=== PATIENT | male | born 1990 | race Caucasian/White ===

== ENCOUNTER 2018-06-18 05:58 | Emergency (ER) | payer SELFPAY ==
[2018-06-18 05:59] VITALS: BP 122/99; PULSE 64; RESP 18; TEMP 36.2; O2SAT 96; BMI 20.6
--- NOTE | 2018-06-18 07:08 | RAD_ITS ---
STUDY: X-RAY - LUMBAR SPINE REASON FOR EXAM: Male, 27 years old. Low back pain TECHNIQUE: 3 view(s) of the lumbar spine were obtained. COMPARISON: None FINDINGS: Normal lumbar lordosis. There is no substantial scoliosis. There is a normal alignment of the vertebrae. Normal vertebral bodies and endplates. Normal disc space heights. The soft tissue structures are unremarkable. RAD/Lumbar Spine 2 or 3 Views IMPRESSION: Normal x-ray examination of the lumbar spine. Electronically Signed: González Akbar DO at 7:52 EDT Tel , Service support ,
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
[2018-06-18] MEDS: Naproxen 500 MG Tablet PO (07:43)
[2018-06-18 07:46] VITALS: BP 121/77; PULSE 62; RESP 15; O2SAT 98
== END 2018-06-18 07:51 | disposition home or self-care (01) ==
PROVIDERS: Emergency Provider Emergency Medicine
DX: S39.012A Strain of muscle, fascia and tendon of lower back, initial encounter (principal); V49.49XA Driver injured in collision with other motor vehicles in traffic accident, initial encounter; Y93.89 Activity, other specified; Y92.410 Unspecified street and highway as the place of occurrence of the external cause
CPT/HCPCS: 72100; 99282

== ENCOUNTER 2018-07-07 08:48 | Emergency (ER) | payer SELFPAY ==
[2018-07-07 08:49] VITALS: BP 125/74; PULSE 83; RESP 18; TEMP 36.6; O2SAT 97; BMI 21.7
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
[2018-07-07 09:37] VITALS: RESP 14
== END 2018-07-07 09:40 | disposition home or self-care (01) ==
PROVIDERS: Emergency Provider Emergency Medicine
DX: S39.012A Strain of muscle, fascia and tendon of lower back, initial encounter (principal); V89.2XXA Person injured in unspecified motor-vehicle accident, traffic, initial encounter; Y93.89 Activity, other specified; Y92.9 Unspecified place or not applicable
CPT/HCPCS: 99282

== ENCOUNTER 2019-03-25 06:33 | Emergency (ER) | payer SELFPAY ==
[2019-03-25 06:36] VITALS: BP 140/67; PULSE 65; RESP 18; TEMP 36.6; O2SAT 98; BMI 18.8
[2019-03-25 07:09] LABS: Red Blood Cells-Urine 0 SEEN /hpf (0-5); Squamous Epithelial Cells - UA 0 SEEN /hpf (0-5); White Blood Cells 0 SEEN /hpf (0-5)
[2019-03-25] MEDS: 0.9% Normal Saline 1,000 ML 125 ML IV (07:09)
[2019-03-25] MEDS: Ondansetron 4 MG/2 ML Vial IV (07:09)
[2019-03-25 07:19] LABS: Color, Urine Yellow (Yellow); Glucose, Dipstick Normal (Normal); Ketone-Dipstick Negative (Negative); Leukocyte Esterase-Dipstick Negative /ul (Negative); Nitrite-Dipstick Negative (Negative); Occult Blood-Urine Negative /ul (Negative); Protein-Dipstick Negative (Negative); Urine Bilirubin Dipstick Negative (Negative); Urine Clarity Clear (Clear); Urine Urobilinogen Normal (Normal)
[2019-03-25 07:19] LABS: Absolute Lymphocyte Count 3.12 X10^3/ul (0.83-4.51); Basophil# 0.03 X10^3/uL; Basophil% 0.4 % (0-1); Eosinophil# 0.24 X10^3/uL; Eosinophils% 3.4 % (0-5); Hematocrit 46.4 % (40-54); Hemoglobin 15.3 g/dl (13.0-16.5); Lymphocyte # 3.12 X10^3/ul (4.0); Lymphocyte % 43.9 % (19-41); Mean Corpuscular Hgb 28.5 pg (27.0-32.0); Mean Corpuscular Volume 86.6 fL (80-94); Monocyte# 0.73 X10^3/uL; Monocyte% 10.3 % (0-10); Neutrophil # 2.97 X10^3/uL (2.7-7.7); Neutrophil % 41.9 % (47-70); Platelet Count 216 K/mm3 (150-450); RBC Distribution Width CV 12.6 % (11.6-14.6); RBC Distribution Width SD 39.5 fl (35.1-43.9); Red Blood Count 5.36 M/mm3 (4.6-6.2); White Blood Count 7.1 K/mm3 (4.4-11.0)
[2019-03-25 07:22] LABS: POSITIVE COUNT NO; POSITIVE DIFFERENTIAL NO; POSITIVE MORPHOLOGY NO
--- NOTE | 2019-03-25 07:27 | ED.DCSUM_ITS ---
- ER Visit Summary Date of Service: 03/25/19 Chief Complaint: [Abdominal pain] History of Present Illness: The patient is a 28 M [presents with abdominal pain that started 2 days ago. Patient states pain is been continuous. He currently rates it a 7 out of 10. Complains of nausea and vomiting x2 with it. He denies any diarrhea. Last bowel movement was yesterday. Patient states that the stools been looking somewhat black. Patient denies using frequent anti- inflammatories. Patient has had prior appendectomy. No family history of inflammatory bowel disease.] Physical Examination: [HEENT-PERRLA, EOMI. Cranial nerves II through XII grossly intact. TMs clear. Mucous membranes moist. No adenopathy. Cardiovascular-regular rate and rhythm without murmur or ectopy Lungs-clear to auscultation, chest wall stable without crepitus or subcu emphysema Abdomen-normoactive bowel sounds, soft. Patient has diffuse tenderness over the epigastric region with some guarding. There is no rebound, rigidity, or perineal signs. Extremities-intact ?4, normal range of motion, normal pulses, atraumatic] Test Results: [CBC, LFTs, lipase, lactate, urinalysis ordered and pending] Emergency Department Course and Treatment: [Patient was given Zofran and was ordered normal saline. He refused pain medication. Care of patient turned over the morning physician awaiting lab results and final disposition] Treatment Plan: [The care of patient turned over the morning physician awaiting lab results pending] Disposition: [Pending] Impression: [Abdominal pain] This note was generated with [employer] dictation software. It may contain incorrect words, spelling, and punctuation that were not noted in review of the chart prior to signing ED Disposition - Plan for ED Patient: Referrals: Care Physician,No Primary [Primary Care Provider] -
[2019-03-25 07:28] LABS: Bacteria RARE /hpf (None Seen); Mucous, Urine 1+ /hpf (<or=2+)
[2019-03-25 07:29] LABS: ALB/GLOB Ratio 1.3 RATIO (0.9-2.4); AST(SGOT) 12 U/L (15-37); Alanine Aminotransfer ALT/SGPT 17 U/L (16-61); Alkaline Phosphatase 57 U/L (45-117); Anion Gap 7 (5-15); BUN 13 mg/dL (7-18); Calcium,Total 8.8 mg/dL (8.5-10.1); Chloride 107 mmol/L (98-107); Creatinine, Serum 1.08 mg/dL (0.70-1.30); EST Glomerular Filtration Rate 88 mL/min (>60); Est Glom Filt Rate - Afr Amer 106 mL/min (>60); Estimated Creatinine Clearance 95.29 ml/min; Globulin 3.1 g/dL (2.2-4.2); Glucose 109 mg/dL (74-106); Lipase 96 U/L (73-393); Potassium 4.1 mmol/L (3.5-5.1); Protein, Total 7.1 g/dL (6.4-8.2); Sodium Level 142 mmol/L (136-145)
[2019-03-25 07:45] LABS: Lactic Acid 0.8 mmol/L (0.4-2.0)
[2019-03-25] MEDS: Mag Hydrox/Al Hydrox/Simeth 30 ML UDC PO (08:34)
--- NOTE | 2019-03-25 08:50 | ED.VISSUMM ---
- ER Visit Summary Date of Service: 03/25/19 Chief Complaint: [] History of Present Illness: The patient is a 28 M [] Physical Examination: [] Test Results: [] Emergency Department Course and Treatment: [] Treatment Plan: [] Disposition: [] Impression: [] This note was generated with E[employer] dictation software. It may contain incorrect words, spelling, and punctuation that were not noted in review of the chart prior to signing ED Disposition - Plan for ED Patient: Disposition: Home or Assisted Living Diagnosis: Epigastric abdominal pain Instructions: ED PUD Vs Gastritis Referrals: Care Physician,No Primary [Primary Care Provider] - Blanche Mojica [NON-STAFF] - 5-7 Days Additional Instructions: Purchase Pepcid [id number] and take 1 tablet twice a day for the next 2 weeks.
[2019-03-25 09:12] VITALS: PULSE 70; RESP 17; O2SAT 98
== END 2019-03-25 09:14 | disposition home or self-care (01) ==
PROVIDERS: Emergency Provider Emergency Medicine
DX: R10.13 Epigastric pain (principal)
CPT/HCPCS: 80053; 81001; 82274; 83605; 83690; 85025; 96365; 96375; 99284; J7030; A4216; J2405; J3490

== ENCOUNTER 2021-05-18 09:52 | Emergency (ER) | payer MEDICAID, SELFPAY ==
[2021-05-18 09:53] VITALS: BP 125/83; PULSE 84; RESP 16; TEMP 36.1; O2SAT 98
--- NOTE | 2021-05-18 10:01 | EX.ED.UPPERE ---
HPI History of Present Illness Chief Complaint: Laceration Informant: patient Occured/Mechanism Mechanism/Context: Yes injury Onset/Context/Timing Onset: Today Context: Sudden Onset Timing: Continuous Associated Symptoms Associated Symptoms: Negative for Parasthesia, Weakness and Loss of Funtion Narrative Narrative: Patient is a 30-year-old male is otherwise healthy who presents to the emergency department laceration to his left arm. His tetanus was less than a year ago. He states he was in his garage and reaching. He thinks he may have cut it on a sawblade or the corner of a metal shelf. He had some pain and bleeding. He denies any weakness or numbness in his hand. He is on no anticoagulants. [facility] Medications NK 03/25/19 [History Last Taken Unknown] Allergy/AdvReac Type Severity Reaction Status Date / Time No Known Allergies Allergy Verified 05/18/21 09:52 Social History Smoking Status: Never smoker ROS ROS ED Constitutional Constitutional ED: Denies chills or fever(s) Eyes Eyes: Denies blurry vision or change in vision ENT ENT ED: Denies ear pain or sore throat Cardiovascular Cardiovascular: Denies chest pain or palpitations Respiratory/Chest Respiratory/Chest: Denies cough, dyspnea or dyspnea on exertion Gastrointestinal Gastrointestinal: Denies abdominal pain, nausea or vomiting Genitourinary Genitourinary ED: Denies dysuria or urinary frequency Musculoskeletal Musculoskeletal: Denies arthralgias or myalgias Integumentary Denies rash Neurologic Neurologic: Denies headache(s) or paresthesias Psychiatric Psychiatric: Denies anxiety or depression Endocrine Endocrinology: Denies polydipsia or polyuria Allergic/Immunologic Allergic/Immunologic ED: Denies urticaria EXAM Physical Exam Const Vital Signs: 05/18/21 09:53 Temperature 97.0 F L Temperature Source Temporal Pulse Rate 84 Respiratory Rate 16 Blood Pressure 125/83 H Blood Pressure Mean 97 Pulse Ox 98 Oxygen Delivery Method Room Air Positive well nourished and well developed General Appearance ED: well developed HEENT Reports normocephalic, head/scalp atraumatic and moist mucous membranes Eyes PERRL and EOMs intact bilaterally Neck no lymphadenopathy and supple General: Negative for tenderness Chest Wall inspection of chest normal Resp normal respiratory effort and clear to auscultation bilaterally Cardio regular rate, regular rhythm and no murmurs GI normal to inspection, nondistended, normoactive bowel sounds Palpation: Negative for tender, guarding or rebound tenderness present Back/Spine no CVA tenderness Cervical Spine: Negative for cervical spine tenderness Thoracic Spine / Upper Back: Negative for thoracic spinal tenderness Extremity normal to inspection Extremity Narrative: Patient has a 4 cm full-thickness laceration the lateral border of the right forearm. It does not involve the fascia. It is not grossly contaminated. General Extremety ED: Yes other findings; Negative for tenderness General Extremity: other findings Neuro oriented x3 and CN's II-XII intact bilaterally Neuro Narrative: No focal deficits appreciated. Sensorium / Orientation: alert Psych mental status grossly normal Skin no rashes or lesions noted, no wounds and skin turgor normal MDM MDM MDM Narrative Medical decision making narrative: Patient's wound was copiously irrigated. It was anesthetized with 4 cc of 1% lidocaine with epinephrine. The wound was explored. There is no evidence of foreign body. The wound was closed using 8 simple interrupted 4-0 suture. Patient was counseled on local wound care. He tolerated the procedure without issue. He will follow-up in 10 days for suture removal return here with any increasing redness, pain, or drainage. Impression 1. 4 cm left forearm laceration with repair Discharge Plan Triage Chief Complaint: Laceration ED Provider: Dwight Phan Dx/Rx/DC Orders Instructions: ED Laceration: All Closures Prescriptions: No Action NK RF: 0 Primary Care Provider: Care Physician,No Primary Referrals: Suri Keys MD [STAFF PHYSICIAN] - 10 Day for suture removal Care Physician,No Primary [Primary Care Provider] -
[2021-05-18] MEDS: Lidocaine 1% /Epi 1:100 (20ml) 20 ML Vial INFILT (10:19)
== END 2021-05-18 10:40 | disposition home or self-care (01) ==
LOC: ED 10:35
PROVIDERS: Emergency Provider Emergency Medicine
DX: S51.812A Laceration without foreign body of left forearm, initial encounter (principal); X58.XXXA Exposure to other specified factors, initial encounter
CPT/HCPCS: 12002; 99283

== ENCOUNTER 2021-06-01 07:08 | Emergency (ER) | payer MEDICAID, SELFPAY ==
[2021-06-01 07:09] VITALS: BP 137/81; PULSE 62; RESP 18; TEMP 36.1; O2SAT 99; BMI 21.7
[2021-06-01 07:15] VITALS: BP 137/81; PULSE 62; RESP 18; TEMP 36.1; O2SAT 98
[2021-06-01] MEDS: Acetaminophen 325 MG Tablet 650 MG PO (07:28)
[2021-06-01 07:45] LABS: Absolute Lymphocyte Count 2.99 X10^3/uL (0.83-4.51); Absolute Neutrophil Count 2.8 X10^3/uL (2.0-7.7); Basophil# 0.04 X10^3/uL; Basophil% 0.6 % (0-1); Eosinophil# 0.36 X10^3/uL; Eosinophils% 5.3 % (0-5); Hematocrit 46.2 % (40-54); Hemoglobin 14.9 g/dL (13.0-16.5); Lymphocyte # 2.99 X10^3/ul (0.83-4.51); Lymphocyte % 43.8 % (19-41); Mean Corp Hgb Conc 32.3 g/dL (32-36); Mean Corpuscular Hgb 28.9 pg (27.0-32.0); Mean Corpuscular Volume 89.5 fL (80-94); Mean Platelet Vol. 10.5 fl (6.2-12.0); Monocyte# 0.66 X10^3/uL; Monocyte% 9.7 % (0-10); NRBC Flagged by Analyzer 0 % (0-5); Neutrophil # 2.75 X10^3/uL (2.7-7.7); Neutrophil % 40.3 % (47-70); Platelet Count 223 K/mm3 (150-450); RBC Distribution Width CV 11.9 % (11.6-14.6); RBC Distribution Width SD 39.4 fl (35.1-43.9); Red Blood Count 5.16 M/mm3 (4.6-6.2); White Blood Count 6.8 K/mm3 (4.4-11.0)
--- NOTE | 2021-06-01 07:45 | RAD_ITS ---
STUDY: X-RAY CHEST REASON FOR EXAM: Male, 30 years old. LL rib pain TECHNIQUE: PA and lateral views of the chest. COMPARISON: None. FINDINGS: Cardiac silhouette unremarkable. Pulmonary vascularity unremarkable. Aorta unremarkable. No focal patchy airspace opacities. No pleural effusions. Upper abdomen unremarkable. Osseous structures intact. No pneumothorax. RAD/Chest PA and Lateral IMPRESSION: No acute cardiopulmonary findings Electronically Signed: Kahlil Castillo DO at 8:07 EDT Tel , Service support ,
--- NOTE | 2021-06-01 07:46 | EDS_ITS ---
HPI History of Present Illness Chief Complaint: Chest Other Informant: patient Narrative Narrative: Patient is a 30-year-old male with a history of ulcers who presents to the emergency department for blood in his sputum, cough and left lower rib pain. He states he was on his way to work today whenever he developed a spontaneous cough. There was a small amount of blood streaked in his sputum. He is never had this happen before. He is not sure if the blood was coming from the cough or was from the back of his throat. He denies this ever happening before in the past. During the cough he developed left-sided low rib pain. He currently rates the pain as an 8 out of 10. Any movement makes it worse. He is never had this happen before. He denies cough prior to today. He states that the cough only lasted for a few minutes and has since resolved. He is only complaining of the pain now. He denies any fevers or chills. He does not feel short of breath. No nausea vomiting. He denies any melanotic stools. No diarrhea or bright red blood in the stool. He denies any abdominal pain. Patient denies any history of DVT/PE. No leg swelling or calf pain. No prolonged periods of immobility. Patient denies smoking, drinking or drug use. [facility] Home Medications NK 03/25/19 [History Last Taken Unknown] Allergy/AdvReac Type Severity Reaction Status Date / Time No Known Allergies Allergy Verified 06/01/21 07:11 Social History Smoking Status: Never smoker [facility] ED Constitutional Constitutional ED: Denies chills or fever(s) Eyes Eyes: Denies change in vision ENT ENT ED: Denies epistaxis or rhinorrhea Cardiovascular Cardiovascular: Denies palpitations Respiratory/Chest Respiratory/Chest: Reports cough; Denies dyspnea or dyspnea on exertion Gastrointestinal Gastrointestinal: Denies abdominal pain, diarrhea, nausea or vomiting Genitourinary Genitourinary ED: Denies dysuria, hematuria or urinary frequency Musculoskeletal Musculoskeletal: Denies back pain or neck pain Integumentary Denies rash Neurologic Neurologic: Denies dizziness, headache(s) or weakness EXAM Physical Exam Const Vital Signs: 06/01/21 07:09 06/01/21 07:15 06/01/21 08:19 Temperature 97 F L 97 F L Temperature Source Temporal Temporal Pulse Rate 62 62 80 Respiratory Rate 18 18 17 Respiratory Effort Normal Non-Labored Respiratory Pattern Normal Blood Pressure 137/81 H 137/81 H 113/64 Blood Pressure Mean 99 99 Pulse Ox 99 98 98 Oxygen Delivery Method Room Air Room Air Positive well nourished and well developed General Appearance ED: well developed and NAD HEENT Reports normocephalic, head/scalp atraumatic and moist mucous membranes Eyes PERRL and EOMs intact bilaterally Neck supple Chest Wall inspection of chest normal Chest Narrative: The left lateral lower ribs are tender to palpation. Resp normal respiratory effort and clear to auscultation bilaterally Auscultation: Negative for rales, rhonchi or wheezes Cardio regular rate, regular rhythm and no murmurs GI normal to inspection, nondistended, normoactive bowel sounds and non-tender Palpation: soft; Negative for guarding or rebound tenderness present Back/Spine no CVA tenderness Extremity normal to inspection General Extremety ED: Negative for edema or tenderness General Extremity: Negative for edema Neuro no sensory deficits noted Sensorium / Orientation: alert Motor Exam: strength 5/5 throughout Psych mental status grossly normal Skin no rashes or lesions noted MDM MDM MDM Narrative Medical decision making narrative: Patient presents to the emergency department for a brief episode of coughing. There was a small amount of blood in his saliva which concerned him. After the coughing he noticed left lower rib pain. This is worse with any movement. It is reproducible on physical exam. He satting 98% on room air. He is not tachycardic. He is in no acute distress. Will check basic lab work, chest x-ray. Patient is PERC negative but D-dimer was obtained which was well within normal limits. The rest of his lab work did not reveal any significant acute abnormality. He is not anemic. Does have a high white blood cell count. His electrolytes and liver enzymes are within normal limits. Troponin is normal. He has not had any repeat episodes throughout ED stay. On reexamination he is resting comfortably. Patient likely suffered a muscle/rib strain with coughing. He could have ruptured a capillary. I have low concern for PE, aortic catastrophe, DC. Patient does have a history of ulcers but he has no reproducible abdominal pain. This is all over the ribs. I do not feel this is a bleeding ulcer. If he has worsening symptoms whatsoever such as coughing up more blood, having melanotic stools or vomiting blood he needs to return back to the emergency department. He notes any significant shortness of breath he also needs return. He does not have a PCP so I gave him a referral for one. Patient understands and is agreeable this plan. Discharged home in stable condition. All questions were answered. Lab Data Labs: Laboratory Results - last 24 hr 06/01/21 06/01/21 06/01/21 07:20 07:20 07:35 WBC 6.8 RBC 5.16 Hgb 14.9 Hct 46.2 MCV 89.5 MCH 28.9 MCHC 32.3 RDW Std Deviation 39.4 RDW Coeff of Amaya 11.9 Plt Count 223 MPV 10.5 Immature Gran % (Auto) 0.300 Neut % (Auto) 40.3 L Lymph % (Auto) 43.8 H Appling % (Auto) 9.7 Eos % (Auto) 5.3 H Baso % (Auto) 0.6 Absolute Neuts (auto) 2.8 Absolute Lymphs (auto) 2.99 Nucleated RBC % 0 D-Dimer Quant (PE/DVT) <= 0.27 Sodium 141 Potassium 3.9 Chloride 106 Carbon Dioxide 29.0 Anion Gap 6 BUN 19 H Creatinine 0.91 Estim Creat Clear Calc 127.94 Est GFR (MDRD) Af Amer 128 Est GFR (MDRD) Non-Af 106 BUN/Creatinine Ratio 21.0 H Glucose 101 Calcium 8.6 Total Bilirubin 0.20 AST 11 L ALT 18 Alkaline Phosphatase 60 Troponin I High Sens 3.1 Total Protein 7.1 Albumin 4.1 Globulin 3.0 Albumin/Globulin Ratio 1.4 Radiography Chest X-Ray - ED: 2 View (Patient has clear lung powell bilaterally. No pleural effusions. Normal cardiac silhouette. Normal mediastinum. No osseous abnormality appreciated.) Diagnostic Testing: Radiology Impression Chest X-Ray 06/01/21 07:45 IMPRESSION: No acute cardiopulmonary findings Electronically Signed: Kahlil Castillo DO at 8:07 EDT Tel , Service support , Discharge Plan Triage Chief Complaint: Chest Other ED Provider: Humble Rojas Dx/Rx/DC Orders Clinical Impression: Acute chest wall pain, Blood in sputum Instructions: ED Chest Wall Pain, Costochondritis, ED Hemoptysis Prescriptions: No Action NK RF: 0 Primary Care Provider: Care Physician,No Primary Referrals: Royal Austin MD [STAFF PHYSICIAN] - 3-5 Days Care Physician,No Primary [Primary Care Provider] - Disposition Disposition: Home, Self Care Discharge Date/Time: 06/01/21 08:20
[2021-06-01 08:01] LABS: ALB/GLOB Ratio 1.4 RATIO (0.9-2.4); AST(SGOT) 11 U/L (15-37); Alanine Aminotransfer ALT/SGPT 18 U/L (16-61); Albumin, Serum 4.1 g/dL (3.2-5.0); Alkaline Phosphatase 60 U/L (45-117); Anion Gap 6 (5-15); BUN 19 mg/dL (7-18); Calcium,Total 8.6 mg/dL (8.5-10.1); Chloride 106 mmol/L (98-107); Creatinine, Serum 0.91 mg/dL (0.70-1.30); EST Glomerular Filtration Rate 106 mL/min (>60); Est Glom Filt Rate - Afr Amer 128 mL/min (>60); Estimated Creatinine Clearance 127.94 ml/min; Glucose 101 mg/dL (74-106); Potassium 3.9 mmol/L (3.5-5.1); Protein, Total 7.1 g/dL (6.4-8.2); Sodium Level 141 mmol/L (136-145); Troponin-I HS 3.1 pg/mL (3.0-78.5)
[2021-06-01 08:03] LABS: D-Dimer Quantitative (DVT/PE) <= 0.27 FEU/ug/m (0.27-0.49)
[2021-06-01 08:19] VITALS: BP 113/64; PULSE 80; RESP 17; O2SAT 98
== END 2021-06-01 08:20 | disposition home or self-care (01) ==
PROVIDERS: Emergency Provider Emergency Medicine
DX: R07.89 Other chest pain (principal); R04.2 Hemoptysis; R07.81 Pleurodynia
CPT/HCPCS: 71046; 80053; 84484; 85025; 85379; 99284; A4216

== ENCOUNTER 2021-10-10 09:31 | Emergency (ER) | payer MEDICAID, SELFPAY ==
[2021-10-10 09:32] VITALS: BP 114/67; PULSE 82; RESP 14; TEMP 36.2; O2SAT 96; BMI 22.4
--- NOTE | 2021-10-10 09:47 | CT_ITS ---
STUDY: CT ABDOMEN AND PELVIS WITHOUT CONTRAST REASON FOR EXAM: Male, 30 years old. Left groin pain and abdominal pain. RADIATION DOSAGE (If Supplied By Facility): CTDIvol = ( 6.05 ) mGy, DLP = ( 321.88 ) mGycm TECHNIQUE: Transaxial images were obtained from the dome of the diaphragm to the symphysis pubis without oral contrast, and without intravenous contrast. Sagittal and coronal images were reconstructed. Individualized dose optimization techniques were used for this CT. COMPARISON: Comparison is made with prior study 07/20/2014. FINDINGS: The visualized lung bases are unremarkable. The visualized portions of the heart are within normal limits. I suspect a 7.9 mm cyst in the midportion of the right lobe of the liver. Normal gallbladder and extrahepatic biliary system. Normal spleen. Normal pancreas. Normal bilateral adrenal glands. Normal right kidney. Normal left kidney. Normal visualized stomach. Normal small intestine. Normal colon. There are surgical clips in the region of the appendix consistent with a prior appendectomy. Normal abdominal aorta. Normal inferior vena cava. Normal retroperitoneum. Normal urinary bladder. Normal abdominal wall. Normal osseous structures. CT/Abdomen/Pelvis without Cont IMPRESSION: 7.9 mm cyst in the midportion of the right lobe of the liver. Electronically Signed: Saad Duenas MD at 11:01 EST , Service support ,
--- NOTE | 2021-10-10 09:48 | EDS_ITS ---
HPI History of Present Illness Chief Complaint: Male Pain/Injury Detail of Chief Complaint: Left testicle pain Informant: patient Narrative Narrative: Patient presents to the emergency department complaint of pain in his left testicle that started yesterday. Patient states that 3 days ago he started having some dysuria and 2 days ago went to urgent care however was told his urine was unremarkable. Patient denies any trauma to his groin other than his dog may have jumped on him when he was in bed. Patient is and denies any drainage from his penis or history of STDs. Patient denies fevers. Does describe some pain in his lower abdomen and left lower back. Denies passing kidney stones in the past. Prior similar symptoms: No PFSH PFSH Home Medications sulfamethoxazole-trimethoprim 1 tab PO BID #14 tablet 10/10/21 [Rx Last Taken Unknown] Allergy/AdvReac Type Severity Reaction Status Date / Time No Known Allergies Allergy Verified 10/10/21 09:35 Surgical History (Updated 10/10/21 @ 09:35 by Daisy Polo RN) History of appendectomy Social History Smoking Status: Never smoker ROS ROS ED Constitutional Constitutional ED: Reports systems reviewed and no addt'l complaints, except as documented; Denies body ache(s), change in weight or chills Eyes Eyes: Denies acute decrease in peripheral vision, change in vision, double vision or loss of vision ENT ENT ED: Reports none; Denies ear pain, lip swelling, loss taste/smell, neck pain, otalgia or sore throat Cardiovascular Cardiovascular: Reports none; Denies abdominal pain, chest pain with activity, leg edema, lightheadedness, palpitations, rapid heart rate or syncope Respiratory/Chest Respiratory/Chest: Reports none; Denies change in mental status, dry cough, dyspnea, hemoptysis, shortness of breath at rest or shortness of breath with exertion Gastrointestinal Gastrointestinal: Reports none and abdominal pain; Denies change in stool character, diarrhea, hematemesis, hematochezia, melena, rectal bleeding or vomiting Genitourinary Genitourinary ED: Reports none, dysuria and other Details: Left testicle pain ; Denies abdominal discomfort, anuria, genital pain or polyuria Musculoskeletal Musculoskeletal: Reports none; Denies arthralgias, back pain, difficulty walking, extremity pain, muscle weakness or myalgias Integumentary Reports none; Denies abscess or rash Neurologic Neurologic: Reports none; Denies abnormal gait, confusion, focal weakness, frequent falls, headache(s), loss of vision, numbness, paresthesias, radicular pain, vertigo or weakness Psychiatric Psychiatric: Reports systems reviewed and no addt'l complaints, except as documented and none; Denies behavioral changes, confusion, difficulty concentrating, hallucinations, suicidal ideation, tactile hallucinations or visual hallucinations Endocrine Endocrinology: Denies none, cold intolerance, excessive sweating, fatigue or heat intolerance Hematologic/Lymphatic Hematologic/Lymphatic: Reports none; Denies anemia, easy bleeding or easy bruising Allergic/Immunologic Allergic/Immunologic ED: Denies as per HPI, none, lip swelling, mouth swelling, throat swelling, tongue swelling or hives EXAM Physical Exam Const Vital Signs: 10/10/21 09:32 Temperature 97.2 F L Temperature Source Temporal Pulse Rate 82 Respiratory Rate 14 Blood Pressure 114/67 Blood Pressure Mean 82 Pulse Ox 96 Oxygen Delivery Method Room Air Positive well nourished and well developed General Appearance ED: well developed and NAD HEENT Reports TM's clear and moist mucous membranes normocephalic and atraumatic; Negative for trauma or tenderness Tympanic Membrane ED: Yes TM's clear Eyes PERRL and EOMs intact bilaterally General Eye ED: Negative for pale conjunctiva or scleral icterus Neck no lymphadenopathy, supple and no JVD General: Negative for tenderness Chest Wall inspection of chest normal and palpation of chest normal Chest: Negative for tenderness Resp normal respiratory effort and clear to auscultation bilaterally Effort and Inspection: Negative for respiratory distress or pain with movement Auscultation: Negative for rhonchi, wheezes or diminished lung sounds Cardio regular rate, regular rhythm, S1 normal heart sound, S2 normal heart sound and no murmurs Peripheral Pulses: pulses 2+ throughout GI normal to inspection, nondistended, normoactive bowel sounds, soft to palpation, non-tender, non-distended and no masses GI Narrative: Patient has mild tenderness over left lower quadrant Narrative: Circumcised male. Testicles both have a normal lie. There is no scrotal edema or erythema noted. Normal cremasteric reflexes. Patient does have tenderness to palpation over the left epididymis that seems to reproduce his pain. No hernias noted. Back/Spine no CVA tenderness and no thoracic nor lumbar tenderness Extremity normal to inspection General Extremety ED: Negative for edema General Extremity: Negative for edema Neuro oriented x3, CN's II-XII intact bilaterally, no sensory deficits noted and gait normal Sensorium / Orientation: awake, alert, oriented to person, oriented to place and oriented to time Motor Exam: strength 5/5 throughout and strength abnormal Psych mental status grossly normal Skin no rashes or lesions noted and no wounds MDM MDM MDM Narrative Medical decision making narrative: IV line established on arrival. Patient was given Toradol 30 mg IV. Work-up essentially unremarkable. On ultrasound he had a small hydrocele on the left but no evidence of epididymitis otherwise. Based on where his pain is over the epididymis and symptomatology I will go ahead and cover him with Bactrim for 7 days. I will refer him to urology for follow-up. Patient advised to return if worsening pain, fever, or condition should worsen anyway. Lab Data Attestation: I reviewed the patient's lab results. Labs: Laboratory Results - last 24 hr 10/10/21 10/10/21 10/10/21 10:20 10:20 10:20 WBC 5.8 RBC 4.82 Hgb 14.2 Hct 43.6 MCV 90.5 MCH 29.5 MCHC 32.6 RDW Std Deviation 40.1 RDW Coeff of Amaya 12.2 Plt Count 236 MPV 10.3 Immature Gran % (Auto) 0.200 Neut % (Auto) 56.7 Lymph % (Auto) 32.2 [place] % (Auto) 6.6 Eos % (Auto) 4.0 Baso % (Auto) 0.3 Absolute Neuts (auto) 3.3 Absolute Lymphs (auto) 1.86 Nucleated RBC % 0 Sodium 139 Potassium 4.4 Chloride 108 H Carbon Dioxide 29.0 Anion Gap 2 L BUN 14 Creatinine 1.03 Estim Creat Clear Calc 116.29 Est GFR (MDRD) Af Amer 110 Est GFR (MDRD) Non-Af 91 BUN/Creatinine Ratio 13.6 Glucose 96 Calcium 8.6 Urine Color Yellow Urine Clarity Clear Urine pH 7.0 Ur Specific [place] 1.010 Urine Protein Negative Urine Glucose (UA) Normal Urine Ketones Negative Urine Occult Blood Negative Urine Nitrite Negative Urine Bilirubin Negative Urine Urobilinogen Normal Ur Leukocyte Esterase Negative Urine RBC 0 SEEN Urine WBC 0 SEEN Ur Squamous Epith Cells 0 SEEN Urine Bacteria 0 SEEN Urine Mucus 0 SEEN Radiography Diagnostic Testing: Clinical Impression(s) from Imaging Studies Abdomen/Pelvis CT 10/10/21 09:47 IMPRESSION: 7.9 mm cyst in the midportion of the right lobe of the liver. Electronically Signed: Saad Duenas MD at 11:01 EST , Service support , Testicular Ultrasound 10/10/21 11:06 IMPRESSION: Small bilateral hydroceles. Electronically Signed: Nila Grant MD at 12:16 EST Tel , Service support , Discharge Plan Triage Chief Complaint: Male Pain/Injury ED Provider: Emelina Tapia Dx/Rx/DC Orders Clinical Impression: Left testicular pain Instructions: ED Epididymitis Prescriptions: New sulfamethoxazole-trimethoprim [sulfamethoxazole-trimethoprim] 1 TABLET tablet 1 tab PO BID Qty: 14 RF: 0 Primary Care Provider: Care Physician,No Primary Referrals: Vitaliy Sharma MD [STAFF PHYSICIAN] - 5-7 Days Care Physician,No Primary [Primary Care Provider] - Disposition Disposition: Home, Self Care
[2021-10-10] MEDS: Ketorolac 30 MG/ML Syringe IV (10:31)
[2021-10-10] MEDS: 0.9% Normal Saline 1,000 ML 150 ML IV (10:32)
[2021-10-10 10:47] LABS: Absolute Lymphocyte Count 1.86 X10^3/uL (0.83-4.51); Absolute Neutrophil Count 3.3 X10^3/uL (2.0-7.7); Bacteria 0 SEEN /hpf (None Seen); Basophil# 0.02 X10^3/uL; Basophil% 0.3 % (0-1); Color, Urine Yellow (Yellow); Eosinophil# 0.23 X10^3/uL; Glucose, Dipstick Normal (Normal); Hematocrit 43.6 % (40-54); Hemoglobin 14.2 g/dL (13.0-16.5); Ketone-Dipstick Negative (Negative); Leukocyte Esterase-Dipstick Negative /ul (Negative); Lymphocyte # 1.86 X10^3/ul (0.83-4.51); Lymphocyte % 32.2 % (19-41); Mean Corp Hgb Conc 32.6 g/dL (32-36); Mean Corpuscular Hgb 29.5 pg (27.0-32.0); Mean Corpuscular Volume 90.5 fL (80-94); Mean Platelet Vol. 10.3 fl (6.2-12.0); Monocyte# 0.38 X10^3/uL; Monocyte% 6.6 % (0-10); Mucous, Urine 0 SEEN /hpf (<or=2+); NRBC Flagged by Analyzer 0 % (0-5); Neutrophil # 3.28 X10^3/uL (2.7-7.7); Neutrophil % 56.7 % (47-70); Nitrite-Dipstick Negative (Negative); Occult Blood-Urine Negative /ul (Negative); Platelet Count 236 K/mm3 (150-450); Protein-Dipstick Negative (Negative); RBC Distribution Width CV 12.2 % (11.6-14.6); RBC Distribution Width SD 40.1 fl (35.1-43.9); Red Blood Cells-Urine 0 SEEN /hpf (0-5); Red Blood Count 4.82 M/mm3 (4.6-6.2); Squamous Epithelial Cells - UA 0 SEEN /hpf (0-5); Urine Bilirubin Dipstick Negative (Negative); Urine Clarity Clear (Clear); Urine Urobilinogen Normal (Normal); White Blood Cells 0 SEEN /hpf (0-5); White Blood Count 5.8 K/mm3 (4.4-11.0)
--- NOTE | 2021-10-10 11:06 | US_ITS ---
STUDY: SCROTUM ULTRASOUND REASON FOR EXAM: Male, 30 years old. Left testicle pain TECHNIQUE: Ultrasound evaluation of the scrotum was performed with color Doppler and static echevarria-scale imaging. COMPARISON: None. FINDINGS: RIGHT TESTICLE INTRATESTICULAR: There is a normal size of the right testicle. The right testicle measures 3.0 x 4.6 x 2.6 cm. There is a homogenous echotexture. There is normal arterial and normal venous vascularity. There is no demonstrated right testicular mass or cyst. EXTRATESTICULAR: The epididymis is normal in size. There is normal vascularity of the epididymis. There is no demonstrated epididymal cystic structure. There is a small hydrocele. There is no demonstrated varicocele. There is no demonstrated extratesticular mass or cyst. LEFT TESTICLE INTRATESTICULAR: There is a normal size of the left testicle. The left testicle measures 2.9 x 4.7 x 2.5 cm. There is a homogenous echotexture. There is normal arterial and normal venous vascularity. There is no demonstrated left testicular mass or cyst. EXTRATESTICULAR: The epididymis is normal in size. There is normal vascularity of the epididymis. There is no demonstrated epididymal cystic structure. There is a small hydrocele. There is no demonstrated varicocele. There is no demonstrated extratesticular mass or cyst. US/Testicular with Arterial Flow IMPRESSION: Small bilateral hydroceles. Electronically Signed: Nila Grant MD at 12:16 EST Tel , Service support ,
[2021-10-10 11:12] LABS: Anion Gap 2 (5-15); BUN 14 mg/dL (7-18); BUN/Creat Ratio 13.6 RATIO (10-20); Calcium,Total 8.6 mg/dL (8.5-10.1); Chloride 108 mmol/L (98-107); Creatinine, Serum 1.03 mg/dL (0.70-1.30); EST Glomerular Filtration Rate 91 mL/min (>60); Est Glom Filt Rate - Afr Amer 110 mL/min (>60); Estimated Creatinine Clearance 116.29 ml/min; Glucose 96 mg/dL (74-106); Potassium 4.4 mmol/L (3.5-5.1); Sodium Level 139 mmol/L (136-145)
== END 2021-10-10 12:56 | disposition home or self-care (01) ==
PROVIDERS: Emergency Provider Emergency Medicine
DX: N50.812 Left testicular pain (principal); R30.0 Dysuria
CPT/HCPCS: 74176; 76870; 80048; 81001; 85025; 93976; 96374; 99283; J7030

== ENCOUNTER 2024-01-01 08:06 | Emergency (ER) | payer MEDICAID, SELFPAY ==
[2024-01-01 08:07] VITALS: BP 134/73; PULSE 61; RESP 14; TEMP 36.2; O2SAT 100; BMI 21.9
[2024-01-01] MEDS: 0.9% Normal Saline (1000mL) 1,000 ML 1000 ML IV (08:46)
[2024-01-01] MEDS: Ondansetron 4 MG/2 ML Vial IV (08:46)
[2024-01-01 08:51] LABS: Absolute Lymphocyte Count 2.21 X10^3/uL (0.83-4.51); Absolute Neutrophil Count 3.4 X10^3/uL (2.0-7.7); Basophil# 0.03 X10^3/uL; Basophil% 0.5 % (0-1); Eosinophil# 0.17 X10^3/uL; Eosinophils% 2.7 % (0-5); Hemoglobin 14.2 g/dL (13.0-16.5); Lymphocyte # 2.21 X10^3/ul (0.83-4.51); Lymphocyte % 35.1 % (19-41); Mean Corp Hgb Conc 32.3 g/dL (32-36); Mean Corpuscular Hgb 28.6 pg (27.0-32.0); Mean Corpuscular Volume 88.7 fL (80-94); Mean Platelet Vol. 10.3 fl (6.2-12.0); Monocyte# 0.52 X10^3/uL; Monocyte% 8.3 % (0-10); NRBC Flagged by Analyzer 0 % (0-5); Neutrophil # 3.35 X10^3/uL (2.7-7.7); Neutrophil % 53.2 % (47-70); Platelet Count 224 K/mm3 (150-450); RBC Distribution Width CV 12.2 % (11.6-14.6); RBC Distribution Width SD 39.6 fl (35.1-43.9); Red Blood Count 4.96 M/mm3 (4.6-6.2); White Blood Count 6.3 K/mm3 (4.4-11.0)
--- NOTE | 2024-01-01 08:52 | EDS_ITS ---
HPI HPI - GI History of Present Illness Chief Complaint: Abd Pain Narrative Narrative: 33-year-old male presenting with nausea, vomiting, diarrhea. Patient states onset was Friday. He had multiple episodes of vomiting which now turned into dry heaves.Patient states he still making urine. He had a bowel movement this morning but does not think it is diarrhea.Does admit to chills and bodyaches. Patient states his abdomen currently does not hurt but [facility] him when she palpated it. Patient states it is worse when he walks around [facility] Home Medications NK 01/01/24 [History Last Taken Unknown] Allergy/AdvReac Type Severity Reaction Status Date / Time No Known Allergies Allergy Verified 01/01/24 08:08 Surgical History History of appendectomy Social History Smoking Status: Never smoker EXAM Physical Exam Const Vital Signs: 01/01/24 08:07 Temperature 97.1 F L Temperature Source Temporal Pulse Rate 61 Respiratory Rate 14 Blood Pressure 134/73 H Blood Pressure Mean 93 Pulse Ox 100 Oxygen Delivery Method Room Air [facility] MDM Lab Data Labs: Laboratory Results - last 24 hr 01/01/24 08:39 WBC 6.3 RBC 4.96 Hgb 14.2 Hct 44.0 MCV 88.7 MCH 28.6 MCHC 32.3 RDW Std Deviation 39.6 RDW Coeff of Amaya 12.2 Plt Count 224 MPV 10.3 Immature Gran % (Auto) 0.200 Neut % (Auto) 53.2 Lymph % (Auto) 35.1 [place] % (Auto) 8.3 Eos % (Auto) 2.7 Baso % (Auto) 0.5 Absolute Neuts (auto) 3.4 Absolute Lymphs (auto) 2.21 Nucleated RBC % 0 Discharge Plan Triage Chief Complaint: Abd Pain ED Provider: Kermit Burleson Dx/Rx/DC Orders Prescriptions: No Action NK Primary Care Provider: Care Physician,No Primary Referrals: Care Physician,No Primary [Primary Care Provider] -
--- NOTE | 2024-01-01 08:52 | ED.VIS.GI ---
HPI HPI - GI History of Present Illness Chief Complaint: Abd Pain Narrative Narrative: 33-year-old male presenting with nausea, vomiting, diarrhea. Patient states onset was Friday. He had multiple episodes of vomiting which now turned into dry heaves.Patient states he still making urine. He had a bowel movement this morning but does not think it is diarrhea.Does admit to chills and bodyaches. Patient states his abdomen currently does not hurt but [facility] was [facility] him when she palpated it. Patient states it is worse when he walks around [facility] Home Medications dicyclomine 10 mg capsule 10 mg PO BID #30 caps 01/01/24 [Rx Last Taken Unknown] ondansetron 4 mg disintegrating tablet 4 mg PO Q8H PRN PRN Nausea #20 tabs 01/01/24 [Rx Last Taken Unknown] Allergy/AdvReac Type Severity Reaction Status Date / Time No Known Allergies Allergy Verified 01/01/24 08:08 Surgical History History of appendectomy Social History Smoking Status: Never smoker ROS ROS ED Constitutional Constitutional ED: Reports chills; Denies fever(s) or sweats Eyes Eyes: Denies blurry vision or change in vision ENT ENT ED: Denies ear pain or sore throat Cardiovascular Cardiovascular: Denies chest pain, palpitations or racing heartbeat Respiratory/Chest Respiratory/Chest: Denies cough, dyspnea or sputum Gastrointestinal Gastrointestinal: Reports abdominal pain, diarrhea, nausea and vomiting; Denies constipation Genitourinary Genitourinary ED: Denies dysuria, hematuria or urinary frequency Musculoskeletal Musculoskeletal: Reports myalgias; Denies arthralgias or neck pain Integumentary Denies abscess, Abrasions or rash Neurologic Neurologic: Denies headache(s), paresthesias or weakness Psychiatric Psychiatric: Denies anxiety, depression, suicidal ideation or suicidal thoughts Endocrine Endocrinology: Denies polydipsia or polyuria EXAM Physical Exam Const Vital Signs: 01/01/24 08:07 01/01/24 10:34 Temperature 97.1 F L Temperature Source Temporal Pulse Rate 61 61 Respiratory Rate 14 16 Blood Pressure 134/73 H 119/69 Blood Pressure Mean 93 85 Pulse Ox 100 99 Oxygen Delivery Method Room Air Positive well nourished General Appearance ED: NAD; Negative for pallor HEENT Reports moist mucous membranes normocephalic and atraumatic Eyes PERRL and EOMs intact bilaterally Resp normal respiratory effort and clear to auscultation bilaterally Auscultation: Negative for rales, rhonchi or wheezes Cardio regular rate and regular rhythm GI non-tender and non-distended Back/Spine no CVA tenderness Neuro CN's II-XII intact bilaterally and moves all extremities Sensorium / Orientation: alert Motor Exam: strength 5/5 throughout Psych mental status grossly normal and thought process normal Skin no wounds General Skin Exam: Negative for jaundice or pallor MDM MDM MDM Narrative Medical decision making narrative: Patient presenting with abdominal pain nausea, vomiting. Diarrhea has improved. Physical exam is unremarkable. He has no tenderness to palpation on examination. No CVA tenderness. Vital signs stable he is afebrile. Obtain CBC to assess white blood cell count, hemoglobin, platelets. CMP to assess liver function, renal function and electrolytes. Urinalysis to assess for UTI, lipase to test for pancreatitis. All these labs within normal limits. Patient given IV fluids, Toradol, Zofran. On reevaluation he is feeling better. I counseled him we will discharge him home with some dicyclomine, Zofran and he will also take Tylenol ibuprofen at home. We discussed viral testing however the patient declines at this time. Discharged home in stable condition. Impression: 1. Viral syndrome Lab Data Attestation: I reviewed the patient's lab results. Labs: Laboratory Results - last 24 hr 01/01/24 08:39 WBC 6.3 RBC 4.96 Hgb 14.2 Hct 44.0 MCV 88.7 MCH 28.6 MCHC 32.3 RDW Std Deviation 39.6 RDW Coeff of Amaya 12.2 Plt Count 224 MPV 10.3 Immature Gran % (Auto) 0.200 Neut % (Auto) 53.2 Lymph % (Auto) 35.1 [place] % (Auto) 8.3 Eos % (Auto) 2.7 Baso % (Auto) 0.5 Absolute Neuts (auto) 3.4 Absolute Lymphs (auto) 2.21 Nucleated RBC % 0 Sodium 138 Potassium 3.5 Chloride 107 Carbon Dioxide 28.0 Anion Gap 3 L BUN 15 Creatinine 1.07 Estim Creat Clear Calc 106.61 Est GFR (MDRD) Af Amer 104 Est GFR (MDRD) Non-Af 86 BUN/Creatinine Ratio 14.0 Glucose 111 H Calcium 9.0 Total Bilirubin 0.50 AST 8 L ALT 15 L Alkaline Phosphatase 54 Total Protein 7.0 Albumin 3.9 Globulin 3.1 Albumin/Globulin Ratio 1.3 Lipase 32 Urine Color Yellow Urine Clarity Clear Urine pH 6.5 Ur Specific [place] 1.015 Urine Protein 15 H Urine Glucose (UA) Normal Urine Ketones Negative Urine Occult Blood Negative Urine Nitrite Negative Urine Bilirubin Negative Urine Urobilinogen 1 H Ur Leukocyte Esterase Negative Urine RBC 0 SEEN Urine WBC 0-5 SEEN Ur Squamous Epith Cells 0-5 SEEN Urine Bacteria RARE Urine Mucus RARE Discharge Plan Triage Chief Complaint: Abd Pain ED Provider: Kermit Burleson Dx/Rx/DC Orders Instructions: ED Viral Syndrome (Adult) Prescriptions: New dicyclomine 10 mg capsule 10 mg PO BID Qty: 30 0RF ondansetron 4 mg tablet,disintegrating 4 mg PO Q8H PRN PRN (Reason: Nausea) Qty: 20 0RF Stand Alone Forms: ED Work / School Excuse Primary Care Provider: Care Physician,No Primary Referrals: [facility] [Provider Group] - 3-5 Days Care Physician,No Primary [Primary Care Provider] - Disposition Disposition: Home, Self Care Discharge Date/Time: 01/01/24 10:36
[2024-01-01 08:58] LABS: Red Blood Cells-Urine 0 SEEN /hpf (0-5)
[2024-01-01 08:59] LABS: Color, Urine Yellow (Yellow); Glucose, Dipstick Normal (Normal); Ketone-Dipstick Negative (Negative); Leukocyte Esterase-Dipstick Negative /ul (Negative); Nitrite-Dipstick Negative (Negative); Occult Blood-Urine Negative /ul (Negative); Protein-Dipstick 15 mg/dl (Negative); Specific Gravity, Urine 1.015 (1.002-1.030); Urine Bilirubin Dipstick Negative (Negative); Urine Clarity Clear (Clear); Urine Urobilinogen 1 mg/dl (Normal); Urine pH 6.5 (5.0 - 8.0)
[2024-01-01] MEDS: Ketorolac 15 MG/ML Vial IV (09:05)
[2024-01-01 09:10] LABS: ALB/GLOB Ratio 1.3 RATIO (0.9-2.4); AST(SGOT) 8 U/L (15-37); Alanine Aminotransfer ALT/SGPT 15 U/L (16-61); Albumin, Serum 3.9 g/dL (3.2-5.0); Alkaline Phosphatase 54 U/L (45-117); Anion Gap 3 (5-15); BUN 15 mg/dL (7-18); Chloride 107 mmol/L (98-107); Creatinine, Serum 1.07 mg/dL (0.70-1.30); EST Glomerular Filtration Rate 86 mL/min (>60); Est Glom Filt Rate - Afr Amer 104 mL/min (>60); Estimated Creatinine Clearance 106.61 ml/min; Globulin 3.1 g/dL (2.2-4.2); Glucose 111 mg/dL (74-106); Lipase 32 U/L (13-75); Potassium 3.5 mmol/L (3.5-5.1); Sodium Level 138 mmol/L (136-145)
[2024-01-01 09:22] LABS: Bacteria RARE /hpf (None Seen); Mucous, Urine RARE /hpf (<or=2+); Squamous Epithelial Cells - UA 0-5 SEEN /hpf (0-5); White Blood Cells 0-5 SEEN /hpf (0-5)
[2024-01-01 10:34] VITALS: BP 119/69; PULSE 61; RESP 16; O2SAT 99
== END 2024-01-01 10:36 | disposition home or self-care (01) ==
PROVIDERS: Emergency Provider Student in an Organized Health Care Education/Training Program; Visit Provider Student in an Organized Health Care Education/Training Program
DX: B34.9 Viral infection, unspecified (principal)
CPT/HCPCS: 36415; 80053; 81001; 83690; 85025; 96374; 96375; 99283; J7030; A4216; J2405